=== PATIENT | male | born 1945 | race Caucasian/White ===

== ENCOUNTER 2024-05-14 14:39 | Inpatient (IN) | payer MEDICARE ==
[~2024-05-14] VITALS: Ht 175.3 cm; Wt 99.3 kg
[~2024-05-14 14:39] MED LIST: APIX5TAB3 PO; LOP25T PO; SIMV5TAB58 PO
[2024-05-14 15:22] LABS: BASOPHILS # (AUTO) 0.1 X10'3 (0-0.2); BASOPHILS % (AUTO) 0.7 % (0-1); EOSINOPHILS # (AUTO) 0.1 X10'3 (0-0.9); EOSINOPHILS % (AUTO) 0.9 % (0-6); HEMATOCRIT 46.9 % (42.0-52.0); HEMOGLOBIN 15.9 g/dl (14.0-17.9); LYMPHOCYTES # (AUTO) 0.8 X10'3 (1.1-4.8); LYMPHOCYTES % (AUTO) 10.5 % (21-51); MEAN CORPUSCULAR HEMOGLOBIN 31.7 PG (27.0-31.0); MEAN CORPUSCULAR HGB CONC 33.9 g/dL (33.0-36.5); MEAN CORPUSCULAR VOLUME 93.5 FL (78-98); MEAN PLATELET VOLUME 7.8 FL (7.4-10.4); MONOCYTES # (AUTO) 0.5 X10'3 (0-0.9); MONOCYTES % (AUTO) 6.7 % (2-12); NEUTROPHILS # (AUTO) 6.2 X10'3 (1.8-7.7); NEUTROPHILS % (AUTO) 81.2 % (42-75); PLATELET COUNT 221 X10'3 (140-440); RED BLOOD COUNT 5.02 X10'6 (4.70-6.10); RED CELL DISTRIBUTION WIDTH 12.8 % (11.5-14.5); WHITE BLOOD COUNT 7.6 X10'3 (4.5-11.0)
[2024-05-14] MEDS: meclizine 12.5mg tablet PO ONE ×2 (15:23→17:42)
[2024-05-14 15:26] LABS: ALBUMIN 3.9 G/DL (3.4-5.0); ANION GAP 11 (8-16); BLOOD UREA NITROGEN 18 MG/DL (7-18); BUN/CREATININE RATIO 23.4 (10.0-20.0); CALCIUM 9.4 MG/DL (8.5-10.1); CHLORIDE 103 MMOL/L (99-107); CREATININE 0.77 MG/DL (0.60-1.10); GLUCOSE 98 MG/DL (70-104); POTASSIUM 4.3 MMOL/L (3.5-5.1); SODIUM 138 MMOL/L (135-145); TOTAL CARBON DIOXIDE 23.8 MMOL/L (24-32); eCRCL 80 ML/MIN; eGFR > 90 ML/MIN
[2024-05-14 17:27] LABS: BILIRUBIN,URINE NEGATIVE (Neg); CLARITY,URINE CLEAR (Clear); COLOR,URINE YELLOW (Yellow); GLUCOSE, URINE NEGATIVE (Neg); KETONES,URINE 40 mg/dl (Neg); LEUKOCYTE ESTERASE ,URINE NEGATIVE (Neg); NITRITES, URINE NEGATIVE (Neg); OCCULT BLOOD,URINE NEGATIVE (Neg); PH,URINE 5.5 (4.8-8.0); PROTEIN,URINE NEGATIVE (Neg); UROBILINOGEN,URINE 0.2 E.U/dL (0.2-1.0)
[2024-05-14 17:28] LABS: UA COLLECTION TYPE URINAL
[2024-05-14] MEDS ORDERED: MECL-302 PO (17:35)
[2024-05-14] MEDS ORDERED: ondansetron/PF 4mg/2ml inj IV PRN (18:45)
[2024-05-14] MEDS ORDERED: acetaminophen 325mg tablet PO PRN (18:45)
[2024-05-14] MEDS ORDERED: potassium Cl 20 mEq SR tablet PO PRN ×2 (18:45)
[2024-05-14] MEDS ORDERED: magnesium sulf-water 4G/100mL 100 ML IV PRN (18:45)
[2024-05-14] MEDS ORDERED: magnesium sulf-water 2g/50mL 50 ML IV PRN (18:45)
[2024-05-14] MEDS ORDERED: potassium Cl 40MEQ/1/2NS 520ml 520 ML IV PRN (18:45)
[2024-05-14] MEDS ORDERED: magnesium Cl slow-release 64mg tablet PO PRN (18:45)
[2024-05-14] MEDS: normal saline 1000ml 1,000 ML IV SCH (19:26)
[2024-05-14] MEDS: K and/or MAG REPLACEMENT MC SCH (20:00)
[2024-05-14] MEDS ORDERED: ATOR10TA70 PO (20:30)
[2024-05-14] MEDS ORDERED: DILT240C78 PO (20:30)
[2024-05-14] MEDS ORDERED: LISI5TAB22 PO (20:30)
[2024-05-14 22:00] VITALS: BP 116/74; PULSE 77; RESP 18; TEMP 97.8; O2SAT 97
[2024-05-15] VITALS (8 sets, daily range): BP systolic 84–131; BP diastolic 59–90; PULSE 63–89; RESP 16–20; TEMP 97.8–98.8; O2SAT 95–98
[2024-05-15] MEDS ORDERED: meclizine 12.5mg tablet PO PRN
[2024-05-15 06:15] LABS: BASOPHILS # (AUTO) 0.1 X10'3 (0-0.2); BASOPHILS % (AUTO) 0.9 % (0-1); EOSINOPHILS # (AUTO) 0.2 X10'3 (0-0.9); EOSINOPHILS % (AUTO) 3.6 % (0-6); HEMATOCRIT 45.2 % (42.0-52.0); HEMOGLOBIN 15.1 g/dl (14.0-17.9); LYMPHOCYTES # (AUTO) 1.8 X10'3 (1.1-4.8); LYMPHOCYTES % (AUTO) 27.8 % (21-51); MEAN CORPUSCULAR HEMOGLOBIN 31.4 PG (27.0-31.0); MEAN CORPUSCULAR HGB CONC 33.5 g/dL (33.0-36.5); MEAN CORPUSCULAR VOLUME 93.8 FL (78-98); MEAN PLATELET VOLUME 7.9 FL (7.4-10.4); MONOCYTES # (AUTO) 0.7 X10'3 (0-0.9); MONOCYTES % (AUTO) 11.3 % (2-12); NEUTROPHILS # (AUTO) 3.6 X10'3 (1.8-7.7); NEUTROPHILS % (AUTO) 56.4 % (42-75); PLATELET COUNT 218 X10'3 (140-440); RED BLOOD COUNT 4.82 X10'6 (4.70-6.10); RED CELL DISTRIBUTION WIDTH 12.8 % (11.5-14.5); WHITE BLOOD COUNT 6.4 X10'3 (4.5-11.0)
[2024-05-15 06:35] LABS: ALBUMIN 3.5 G/DL (3.4-5.0); ANION GAP 9 (8-16); BLOOD UREA NITROGEN 13 MG/DL (7-18); BUN/CREATININE RATIO 16.5 (10.0-20.0); CALCIUM 9.3 MG/DL (8.5-10.1); CHLORIDE 105 MMOL/L (99-107); CREATININE 0.79 MG/DL (0.60-1.10); GLUCOSE 86 MG/DL (70-104); MAGNESIUM 1.9 MG/DL (1.5-2.4); POTASSIUM 4.2 MMOL/L (3.5-5.1); SODIUM 142 MMOL/L (135-145); TOTAL CARBON DIOXIDE 27.8 MMOL/L (24-32); eCRCL 78 ML/MIN; eGFR > 90 ML/MIN
[2024-05-15] MEDS: atorvastatin 10mg tablet PO SCH (11:30)
[2024-05-15] MEDS: lisinopril 5mg tablet PO SCH (11:30)
[2024-05-15 15:24] LABS: THYROID STIMULATING HORMONE 1.73 ulU/ml (0.34-4.50)
[2024-05-15] MEDS ORDERED: non-formulary drug (Meclizine HCl 1 TAB) PO SCH (16:00)
[2024-05-15] MEDS: apixaban 5mg tablet PO SCH (20:29)
[2024-05-16 02:00] VITALS: BP 105/79; PULSE 88; RESP 15; TEMP 97.9; O2SAT 94
[2024-05-16 05:50] LABS: BASOPHILS # (AUTO) 0.1 X10'3 (0-0.2); BASOPHILS % (AUTO) 0.9 % (0-1); EOSINOPHILS # (AUTO) 0.2 X10'3 (0-0.9); EOSINOPHILS % (AUTO) 3.3 % (0-6); HEMATOCRIT 47.3 % (42.0-52.0); HEMOGLOBIN 15.7 g/dl (14.0-17.9); LYMPHOCYTES # (AUTO) 1.5 X10'3 (1.1-4.8); LYMPHOCYTES % (AUTO) 23.4 % (21-51); MEAN CORPUSCULAR HEMOGLOBIN 31.6 PG (27.0-31.0); MEAN CORPUSCULAR HGB CONC 33.3 g/dL (33.0-36.5); MEAN PLATELET VOLUME 7.9 FL (7.4-10.4); MONOCYTES # (AUTO) 0.7 X10'3 (0-0.9); MONOCYTES % (AUTO) 11.7 % (2-12); NEUTROPHILS # (AUTO) 3.9 X10'3 (1.8-7.7); NEUTROPHILS % (AUTO) 60.7 % (42-75); PLATELET COUNT 228 X10'3 (140-440); RED BLOOD COUNT 4.98 X10'6 (4.70-6.10); RED CELL DISTRIBUTION WIDTH 12.9 % (11.5-14.5); WHITE BLOOD COUNT 6.4 X10'3 (4.5-11.0)
[2024-05-16 06:00] VITALS: BP 128/89; PULSE 83; RESP 15; TEMP 98.3; O2SAT 97
[2024-05-16 06:04] LABS: ALBUMIN 3.4 G/DL (3.4-5.0); ANION GAP 8 (8-16); BLOOD UREA NITROGEN 15 MG/DL (7-18); BUN/CREATININE RATIO 17.4 (10.0-20.0); CALCIUM 9.4 MG/DL (8.5-10.1); CHLORIDE 105 MMOL/L (99-107); CREATININE 0.86 MG/DL (0.60-1.10); GLUCOSE 96 MG/DL (70-104); POTASSIUM 4.4 MMOL/L (3.5-5.1); SODIUM 141 MMOL/L (135-145); TOTAL CARBON DIOXIDE 28.5 MMOL/L (24-32); eCRCL 72 ML/MIN; eGFR 86 ML/MIN
[2024-05-16 08:00] VITALS: BP_SYST 114; BP_SYST 119; BP_SYST 128; BP_DIAS 81; BP_DIAS 82; BP_DIAS 88; PULSE 113; PULSE 87; PULSE 88; RESP 16; O2SAT 97
[2024-05-16 11:00] VITALS: BP 116/74; PULSE 97; RESP 16; TEMP 98.5; O2SAT 95
[2024-05-16 11:05] VITALS: RESP 16; O2SAT 97
[2024-05-16 11:15] VITALS: BP_SYST 113; PULSE 85
[2024-05-16] MEDS: metoprolol tartrate 25mg tablet PO ONE (11:15)
[2024-05-16] MEDS ORDERED: LISI5TAB22 PO (12:36)
[2024-05-16] MEDS ORDERED: DILT120C88 PO (12:36)
[2024-05-16] MEDS ORDERED: metoprolol tartrate 25mg tablet PO SCH (20:00)
== END 2024-05-16 14:10 | disposition home or self-care (01) | DRG 149 ==
LOC: ER 14:40 → ED HOLD 18:54 → PCU 3S 21:37
PROVIDERS: ADMIT Internal Medicine; ATTEND Internal Medicine
DX: H81.10 Benign paroxysmal vertigo, unspecified ear (principal); T50.995A Adverse effect of other drugs, medicaments and biological substances, initial encounter; I10 Essential (primary) hypertension; E78.00 Pure hypercholesterolemia, unspecified; G47.30 Sleep apnea, unspecified; I48.0 Paroxysmal atrial fibrillation; Z79.01 Long term (current) use of anticoagulants; Z79.899 Other long term (current) drug therapy; Y92.89 Other specified places as the place of occurrence of the external cause
CPT/HCPCS: 36415; 70450; 70551; 71045; 80048; 81003; 83735; 84443; 85025; 87081; 93005; 93306; 93880; 97116; 97161; 97530; 99291; G0378; J7030; J8597

== ENCOUNTER 2025-04-24 09:48 | Day surgery (SDC) | payer MEDICARE ==
[~2025-04-24] VITALS: Ht 175.3 cm; Wt 98.5 kg
[~2025-04-24 09:48] MED LIST changes: +ATOR10TA70 PO; +DILT120C88 PO; +LISI5TAB22 PO; +MECL-302 PO
[2025-04-24] MEDS ORDERED: normal saline 1000ml 1,000 ML IV SCH (10:10)
[2025-04-24] MEDS ORDERED: fentaNYL/PF 50MCG/1 ML 2ML syringe IV ONE (10:10)
[2025-04-24] MEDS ORDERED: MIDAZolam 1mg/ml 10ml vial IV ONE (10:10)
[2025-04-24] MEDS ORDERED: DILT120C52 PO (10:16)
[2025-04-24] MEDS ORDERED: FLEC50TA28 PO (10:16)
[2025-04-24 10:20] VITALS: BP 116/82; PULSE 90; RESP 14; TEMP 99.2; O2SAT 96; O2SAT 98
[2025-04-24] MEDS ORDERED: CoQ-10 PO (10:20)
[2025-04-24] MEDS ORDERED: LISI5TAB22 PO (10:20)
[2025-04-24] MEDS ORDERED: MULT-1172 PO (10:30)
[2025-04-24] MEDS ORDERED: ATOR10TA87 PO (10:30)
[2025-04-24] MEDS ORDERED: LEVO500C3 PO (10:30)
[2025-04-24] MEDS ORDERED: fentaNYL/PF 50MCG/1 ML 2ML syringe ONE (12:04)
[2025-04-24] MEDS ORDERED: midazolam 1 mg/ML 2ml injection ONE ×2 (12:04→12:31)
[2025-04-24 12:50] VITALS: BP 113/84; PULSE 66; RESP 10; O2SAT 97
[2025-04-24 13:00] VITALS: BP 106/80; PULSE 69; RESP 16; O2SAT 96
[2025-04-24 13:15] VITALS: BP 111/78; PULSE 67; RESP 18; O2SAT 95
--- NOTE | 2025-04-24 13:24 | ELECTROCARDIOGRAPH REPORT ---
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 NAOMI Carrera Measurements Intervals [place] Rate: 68 P: 51 MN: 218 QRS: 2 QRSD: 96 T: 30 QT: 437 QTc: 465 Interpretive Statements Sinus rhythm Borderline prolonged MN interval Electronically Signed On 04-25-2025 16:53:[address] NAOMI Carrera Please click the below link to view image of tracing.
[2025-04-24 13:30] VITALS: BP 111/79; PULSE 66; RESP 16; O2SAT 98
--- NOTE | 2025-04-24 20:38 | PROCEDURE NOTE CC ---
Procedure Note Providers to CC CC: ISABEL LEWIS MD ~ Description Planned Procedure Cardioversion Indications Symptomatic Atrial Fibrillation Post Operative Dx: Same Type of Anesthesia Moderate Sedation. Description It was confirmed that patient has been taking oral anticoagulation without interruption for at least 4 weeks. The appropriate time-out procedure was performed including proper identification of the patient, physician, procedure, documentation, and there were no safety issues identified. The patient participated actively in this. After sedation was achieved, the patient was placed in the supine position and hands free patches were placed on their chest in the AP-lateral position. 1 synchronized cardioversion was provided at 200 Joules with conversion to normal sinus rhythm. This was confirmed on EKG. Complication: None The patient tolerated the procedure well without complications. MICHELLE LEWIS MD Apr 24, 2025 20:38
== END 2025-04-24 13:40 | disposition home or self-care (01) ==
LOC: SSTAY O 09:48
PROVIDERS: ATTEND Student in an Organized Health Care Education/Training Program
DX: I48.91 Unspecified atrial fibrillation (principal); I10 Essential (primary) hypertension; E78.00 Pure hypercholesterolemia, unspecified; I42.9 Cardiomyopathy, unspecified; G47.33 Obstructive sleep apnea (adult) (pediatric); I34.0 Nonrheumatic mitral (valve) insufficiency; Z79.01 Long term (current) use of anticoagulants; Z79.899 Other long term (current) drug therapy
CPT/HCPCS: 92960; 93005; J2250; J3010; J7030; Z7610; 99152

== ENCOUNTER 2025-07-16 09:40 | Emergency (ER) | payer MEDICARE ==
[~2025-07-16] VITALS: Ht 175.3 cm; Wt 99.4 kg
[~2025-07-16 09:40] MED LIST changes: +AMIO200T76 PO; -ATOR10TA70 PO; +ATOR10TA87 PO; +DILT120C52 PO; -DILT120C88 PO; +LISI2.5T14 PO; -LISI5TAB22 PO; -LOP25T PO; -MECL-302 PO; -SIMV5TAB58 PO
[2025-07-16 09:44] VITALS: BP 175/116; PULSE 110; RESP 18; TEMP 97.3; O2SAT 98
--- NOTE | 2025-07-16 11:25 | Physician Documentation ---
History of Present Illness ~ Chief Complaint: Neck pain Stated Complaint: NECK PAIN Time Seen by MD: 09:53 HPI 79-year-old male who presents to the emergency department after receiving chiropractic cervical spine manipulation for acute on chronic pain. Began developing posterior cervical spinal pain at the area of C7-C8 about three months ago. Reports the pain has a burning-type that travels to the left upper extremity and left and right chest. Denies fevers. Until this recent event denies prior history of the same. Went to see his primary care physician who referred him to senior caregiver. Reports that the chiropractic manipulation was incredibly painful we continues to have pain. Medication Reconciliation Allergies: Coded Allergies: No Known Allergies (Unverified , 07/16/25) Scheduled Amiodarone Hcl (Cordarone), 200 MG PO QAM, (Reported) Apixaban (Eliquis), 1 TAB PO Q12H, (Reported) Atorvastatin Calcium* (Lipitor*), 1 TAB PO HS, (Reported) Diltiazem HCl (Cartia Xt), 1 CAP PO DAILY, (Reported) Lidocaine (Lidoderm), 1 PATCH TD DAILY Lisinopril (Lisinopril), 1 TAB PO DAILY, (Reported) Prednisone* (Prednisone*), 3 TAB PO DAILY Tizanidine Hcl (Zanaflex), 1 TAB PO Q8H Past Medical History Past Medical History: Vertigo, *CARDIOVASCULAR*, High Cholesterol, Hypertension, Sleep Apnea Past Surgical History: other Alcohol Use: Occasionally Drug Use: none Review of Systems All Other Systems at this time: Reviewed and Negative Constitutional: Denies: fever Physical Exam Vital Signs: RN Vital Signs have been reviewed: Yes, Temperature: 97.3, Source: Temporal, Heart Rate: 110, Respiratory Rate: 18, BP: 175/116, Pulse Oximetry: 98, Weight: 99.400 Oxygen Flow Rate: 0 General Appearance: alert, WD/WN, mild distress Neck: limited range of motion, painful range of motion, paraspinous muscle tender, tenderness, tender midline EENT: normal ENT inspection Respiratory: normal breath sounds Chest: no accessory muscle use Cardiovascular: regular rate, rhythm Gastrointestinal: non-tender Back: normal inspection Skin: normal color, warm/dry Neurologic: oriented x4 Motor / Sensory: no motor deficit, no sensory deficit Psychiatric: normal mood/affect Progress Results/Orders Results/Orders Orders - MICAELA CISNEROS PAC Ct Cervical Spine (07/16/25 10:30) Completed Orders - MICAELA CISNEROS PAC Ct Cervical Spine (07/16/25 10:30) Vital Signs 07/16/25 09:44 Temp 97.3 Pulse 110 Resp 18 B/P (MAP) 175/116 Pulse Ox 98 O2 Flow Rate 0 Medical Decision Making Additional information obtaine: N/A Findings 79-year-old male with a three month history of posterior cervical pain radiates to his left chest left upper extremity was exacerbated after receiving chiropractic therapy. Examination history warrants x-ray and CT imaging to evaluate for acute bony pathologies and also disc pathology. CT imaging results conveyed to patient wishes consistent with current radicular pathology. Shared decision-making and to avoid neuropathic pain at this time yet we will provide prednisone burst for five days along with muscle relaxant and Lidoderm patch. Patient understands the importance of follow up with the primary care physician for referral to orthopedist, neurosurgery for consideration of procedural care. He understands the importance to avoid manipulation that this point. He is grossly neurologically intact without focal neuro deficits. Patient will follow up with his primary care physician's regarding other medicinal therapy such as neuropathic pain medicine. Differential Dx:Considerations: Include: Cervical muscle spasm, Discitis, DJD, Meningitis, Torticollis, Other (Cervical radiculopathy) Departure Disposition: 01 HOME / SELF CARE / HOMELESS Impression: Primary Impression: Cervical spine radicular pain Condition: Stable Discharge Instructions: Radicular Pain Additional Instructions: Today in the emergency department you had CT imaging along with x-ray imaging of the cervical spine. It is imperative that he follow up with your primary care physician for neurosurgical evaluation and/or orthopedic evaluation for cervical radiculopathy. Please begin medications as directed and return to the emergency department as needed. Thank you for visiting [facility]. Referrals: NO PRIMARY CARE PROVIDER (PCP) Prescriptions Lidocaine (Lidoderm) 5 % Adh..patch 1 PATCH TD DAILY, #30 PATCH Apply 1 patch daily for 12 hours then off for 12 hours May sub 15 grams 4 pct lidocaine cream if patches are cost peohibitive Prov: MICAELA CISNEROS PAC 07/16/25 Tizanidine Hcl (ZANAFLEX) 4 Mg Tablet 1 TAB PO Q8H for 10 Days, #30 TAB 0 Refills Prov: MICAELA CISNEROS 07/16/25 Prednisone* (Prednisone*) 20 Mg Tablet 3 TAB PO DAILY, #15 TAB Prov: MICAELA CISNEROS 07/16/25 Education Educated: Patient Educated regarding: diagnosis, treatment, prognosis, need for follow up Signature Scribe Signature: . Attestation: . MICAELA CISNEROS Jul 16, 2025 11:25
--- NOTE | 2025-07-16 14:23 | RADIOLOGY REPORT ---
Indication: Limited ROM w pain Technique: CT axial images of the cervical spine are obtained without contrast. Coronal and sagittal reformats were obtained. Radiation Dose Information: CTDI volume is 23 mGy. Dose-length product is 132 mGy*cm Comparison: None FINDINGS: The cervical vertebral body heights are maintained. Straightening of normal cervical spine curvature. There is moderate to severe disc space narrowing. No prevertebral edema. Facet articulations demonstrate moderate to severe facet hypertrophic changes . The atlantooccipital, atlantoaxial articulations are intact. Posterior paraspinal mineralization. Subcentimeter thyroid nodules. Aortic atherosclerotic disease. IMPRESSION: Moderate to severe cervical degenerative disc disease.
[2025-07-16] MEDS ORDERED: LIDO-52 TD (14:35)
[2025-07-16] MEDS ORDERED: PRED20TA PO (14:35)
[2025-07-16] MEDS ORDERED: TIZA4TAB11 PO (14:35)
== END 2025-07-16 14:44 | disposition home or self-care (01) ==
LOC: ER 09:41
DX: M54.12 Radiculopathy, cervical region (principal); R07.9 Chest pain, unspecified; E78.00 Pure hypercholesterolemia, unspecified; G47.30 Sleep apnea, unspecified; I10 Essential (primary) hypertension
CPT/HCPCS: 72125; 99284

== ENCOUNTER 2025-07-19 10:00 | Outpatient (CLI) | payer MEDICARE ==
[~2025-07-19 10:00] MED LIST changes: +LIDO-52 TD; +PRED20TA PO; +TIZA4TAB11 PO
[2025-07-19 10:33] LABS: MEAN PLATELET VOLUME 7.1 FL (7.4-10.4); RED CELL DISTRIBUTION WIDTH 13.8 % (11.5-14.5)
[2025-07-19 10:54] LABS: CREATININE 0.92 MG/DL (0.60-1.10); TOTAL CARBON DIOXIDE 28.3 MMOL/L (24-32); eGFR 80 ML/MIN
--- NOTE | 2025-07-19 19:25 | RADIOLOGY REPORT ---
CT POST WATCHMAN INDICATION: PRESENCE OF OTHER CARDIAC IMPLANTS AND GRAFTS TECHNIQUE: CT cardiac imaging for pulmonary vein analysis has been obtained. 3- D, MIP, and MPR images obtained. All CT scans at this facility use dose modulation, iterative reconstruction, and/or weight based dosing when appropriate to reduce radiation dose to as low as reasonably achievable. COMPARISON: None available at the time of dictation. STUDY QUALITY: Good FINDINGS: LEFT ATRIAL APPENDAGE: Appearance of successful occlusion of the left atrial appendage status post Watchman device placement. No delayed contrast extension beyond the occlusion device. CARDIAC CHAMBERS: Prominence of the main pulmonary artery, which may indicate pulmonary hypertension. Coronary artery disease. Mildly dilated left atrium, which may be seen in the setting of atrial fibrillation. OTHER: Slight contour irregularity, left anterior ribcage with marginal intercostal thickening, which is likely reflective of age-indeterminate anterior rib fractures IMPRESSION: Appearance of successful occlusion of the left atrial appendage status post Watchman device placement. No delayed contrast extension beyond the occlusion device. Age-indeterminate left anterior rib fractures.
[2025-08-01] MEDS ORDERED: FLEC50TA28 PO (19:47)
[2025-08-02] MEDS ORDERED: GABA300T28 (01:11)
[2025-08-02] MEDS ORDERED: CLOP75TA34 PO (01:11)
[2025-08-02] MEDS ORDERED: ASPI81TA52 PO (01:15)
[2025-08-03] MEDS ORDERED: DILT-36 PO (11:41)
[2025-08-03] MEDS ORDERED: ATOR10TA PO (11:41)
== END 2025-07-19 23:59 | disposition home or self-care (01) ==
LOC: RAD 10:00
PROVIDERS: ATTEND Student in an Organized Health Care Education/Training Program
DX: S22.42XA Multiple fractures of ribs, left side, initial encounter for closed fracture (principal); I25.10 Atherosclerotic heart disease of native coronary artery without angina pectoris; Z95.818 Presence of other cardiac implants and grafts; R09.89 Other specified symptoms and signs involving the circulatory and respiratory systems; Z98.890 Other specified postprocedural states; X58.XXXA Exposure to other specified factors, initial encounter; Y93.89 Activity, other specified; Y92.89 Other specified places as the place of occurrence of the external cause; Y99.8 Other external cause status
CPT/HCPCS: 36415; 71275; 75572; 80053; 85025; Q9967